=== PATIENT | male | born 1990 | race Caucasian/White ===

== ENCOUNTER 2016-10-18 10:33 | Inpatient (IN) | payer OTHER ==
[~2016-10-18] VITALS: Ht 188 cm; Wt 172.4 kg
--- NOTE | ~2016-10-18 | O ---
[facility] [place] [address] OPERATIVE REPORT Name: LIZZIE MAI Room #: 437-P [facility] IN M.R.#: [id number] Admission: 10/18/16 Attend Phys: Axel Richmond MD Discharge: Date of : 89 Report #: [id number] THIS REPORT FOR: //name// CC: Jareth Richmond MD PREOPERATIVE DIAGNOSES: Right ureteral calculi, right flank pain, right hydronephrosis. POSTOPERATIVE DIAGNOSES: Right ureteral calculi, right flank pain, right hydronephrosis. PROCEDURE: Cystoscopy, right ureteroscopy with holmium laser ablation of right ureteral calculi with placement of indwelling right ureteral stent. SURGEON: Frederick Romano MD ANESTHESIA: General. INDICATIONS: The patient is a very pleasant 26-year-old gentleman who is admitted for pain management for hydronephrosis and right distal ureteral calculi. He has been persistently symptomatic requiring IV medication. I reviewed his films and reviewed risks, benefits, complications. He has opted to proceed with endoscopic manipulation, risk of injury to the ureter, injury to kidney requiring immediate or delayed open surgery, risk of complications were discussed. He understands complications could occur, which may not have been foreseen or discussed. Issues related to stent placement, stent removal have been discussed. He has previously removed the stent on er. I explained he most likely would require stents. SURGICAL PROCEDURE: After obtaining informed consent, he was brought to the operating room, general anesthetic was administered. He was prepped and draped in lithotomy position by the operating personnel under anesthesia supervision. The preliminary fluoroscopic images were obtained. The stones were very faint in the right hemipelvis. The 22-[place] Olympus cystoscope was introduced under direct vision. The anterior urethra was normal. Prostatic urethra short and nonobstructive. Upon entering the bladder, the trigone and ureters were noted to be normal in configuration and location. Initially I attempted to place a straight Glidewire into the right ureter and into the right renal pelvis, but the stones were impacted. Ultimately, I used an angled Glidewire and I was able to negotiate the wire past the stones. I then dilated the very pinpoint ureteral orifice to 15-[place] Korean at 10 atmospheres. Using the 4 cm balloon, I used a 6.9-[place] semirigid ureteroscope to access the ureter, identified the stone fragments and I was able to break them into innumerable small fragments. I retrieved the largest of the fragments and sent it [place] [address] OPERATIVE REPORT Name: LIZZIE MAI Room #: 437-P [facility] IN M.R.#: [id number] Admission: 10/18/16 Attend Phys: Axel Richmond MD Discharge: Date of : 90 Report #: [id number] fragments fell into the bladder. Because of the hydronephrosis, I was able to easily advance the scope all the way up to the UPJ without difficulty. The ureter was pristine. At this point, the ureter was opened. There were no significant fragments whatsoever within the ureter. Large fragments had been retrieved after holmium laser ablation. I then removed the ureteroscope and backloaded the wire through the cystoscope and placed a 6-[place] x 28 cm contour stent. The proximal curl was overlying the right renal . The distal curl was in the bladder. The dangler was left attached and secured to the penis with benzoin and Steri-Strips. He arrived to the recovery room in stable condition. By: [id number] Frederick Romano MD /nt
[~2016-10-18 10:33] MED LIST: AZO CRANBERRY1 EACH PO; CLONAZEPAM; CLONAZEPAM 0.50.5 M1 PO; COLACE100 MG PO; DEPAKOTE125 MG; FLOMAX0.4 MG PO; IBUPROFEN 400400 M2 PO; LEXAPRO 10 MG T10 M1 PO; MIRALAX17 GM PO; NOHOMEMEDICATIONS; NORCO 5-325 TA1 EACH; NORCO 5-325 TA1 EACH PO; OXYCODONE HCL 55 MG PO; OXYCODONE HCL5 M1 PO; PERCOCET 10-321 EACH PO; PERCOCET PO; SENOKOT-S1 TA1 PO; SEROQUEL 25 MG25 M1 PO; TYLENOL325 MG PO
[2016-10-18 12:00] VITALS: BP 139/89
[2016-10-18 16:00] VITALS: BP 135/85
[2016-10-18 16:17] LABS: ABSOLUTE NEUTROPHILS 3.9 thou/uL (1.4-8.2); BASOPHILS 0.8 % (0.0-2.0); EOSINOPHILS 2.6 % (0.0-3.0); HEMOGLOBIN 15.1 gm/dL (14.0-18.0); LYMPHOCYTES 30.2 % (24.0-44.0); MCH 31.2 pg (26.0-34.0); MCHC 34.4 g/dL (28.0-37.0); MCV 90.7 fL (80.0-100.0); MONOCYTES 8.3 % (1.0-8.0); PLATELET COUNT 214 thou/uL (150-400); POLYS 58.1 % (36.0-66.0); RBC 4.85 mil/uL (4.50-6.00); RDW 12.9 % (10.5-14.5); WBC 6.7 thou/uL (4.0-11.0)
[2016-10-18 16:18] LABS: MANUAL DIFF NO
[2016-10-18 16:34] LABS: ALBUMIN 3.4 g/dL (3.4-5.0); CALCIUM 8.9 mg/dL (8.5-10.1); CREATININE 0.8 mg/dL (0.7-1.3); POTASSIUM 4.2 mmol/L (3.5-5.1); TOTAL BILIRUBIN 0.4 mg/dL (<0.1-1.0); TOTAL PROTEIN 6.8 g/dL (6.4-8.2)
[2016-10-18 18:23] LABS: URINE BILIRUBIN NEGATIVE (Negative); URINE BLOOD 3+ (Negative); URINE COLOR YELLOW; URINE GLUCOSE-RANDOM* NEGATIVE (Negative); URINE KETONES TRACE (Negative); URINE LEUKOCYTES-REFLEX NEGATIVE (Negative); URINE PROTEIN (DIPSTICK) TRACE (Negative); URINE SPECIFIC GRAVITY >= 1.030 (1.003-1.035)
[2016-10-18 18:28] LABS: SQUAMOUS >10 Many /LPF (0-3)
[2016-10-18 18:29] LABS: CASTS None Seen /LPF (None Seen); CRYSTALS None Seen /LPF (None Seen); URINE WBC-REFLEX 0-5 Rare /HPF (0-5)
[2016-10-18 18:32] LABS: CALCIUM OXALATE 4-10 Moderate /LPF (None Seen)
[2016-10-18 19:25] VITALS: BP 148/74
[2016-10-19 05:15] VITALS: BP 146/94
[2016-10-19 06:08] LABS: HEMATOCRIT 44.3 % (42.0-52.0); HEMOGLOBIN 15.3 gm/dL (14.0-18.0); MCHC 34.5 g/dL (28.0-37.0); RBC 4.92 mil/uL (4.50-6.00); WBC 7.9 thou/uL (4.0-11.0)
[2016-10-19 06:18] LABS: CALCIUM 9.1 mg/dL (8.5-10.1); CREATININE 0.9 mg/dL (0.7-1.3); POTASSIUM 4.3 mmol/L (3.5-5.1)
[2016-10-19 08:00] VITALS: BP 147/98
[2016-10-19 16:00] VITALS: BP 141/93
[2016-10-19 20:00] VITALS: BP 135/72
[2016-10-20 04:20] VITALS: BP 135/66
[2016-10-20 07:16] LABS: HEMATOCRIT 44.6 % (42.0-52.0); HEMOGLOBIN 15.2 gm/dL (14.0-18.0); MCH 30.8 pg (26.0-34.0); MCV 90.5 fL (80.0-100.0); RBC 4.93 mil/uL (4.50-6.00); RDW 12.9 % (10.5-14.5); WBC 7.1 thou/uL (4.0-11.0)
[2016-10-20 07:35] LABS: CALCIUM 9.2 mg/dL (8.5-10.1); CREATININE 0.7 mg/dL (0.7-1.3); POTASSIUM 4.1 mmol/L (3.5-5.1)
[2016-10-20 08:00] VITALS: BP 151/85
[2016-10-20 16:00] VITALS: BP 142/59
[2016-10-20 19:11] VITALS: BP 118/74
[2016-10-21 04:17] VITALS: BP 135/68
[2016-10-21 06:05] LABS: HEMATOCRIT 43.7 % (42.0-52.0); HEMOGLOBIN 15.2 gm/dL (14.0-18.0); MCH 31.1 pg (26.0-34.0); MCHC 34.7 g/dL (28.0-37.0); MCV 89.6 fL (80.0-100.0); RBC 4.88 mil/uL (4.50-6.00); WBC 6.3 thou/uL (4.0-11.0)
[2016-10-21 06:18] LABS: CALCIUM 9.1 mg/dL (8.5-10.1); CREATININE 0.9 mg/dL (0.7-1.3); POTASSIUM 4.2 mmol/L (3.5-5.1)
[2016-10-21 16:00] VITALS: BP 155/92
[2016-10-21 19:36] VITALS: BP 149/87
[2016-10-22 05:00] VITALS: BP 145/70
[2016-10-22 05:53] LABS: HEMATOCRIT 45.6 % (42.0-52.0); HEMOGLOBIN 15.8 gm/dL (14.0-18.0); MCHC 34.6 g/dL (28.0-37.0); MCV 89.4 fL (80.0-100.0); RBC 5.09 mil/uL (4.50-6.00); RDW 13.2 % (10.5-14.5); WBC 13.4 thou/uL (4.0-11.0)
[2016-10-22 06:06] LABS: CALCIUM 9.8 mg/dL (8.5-10.1); CREATININE 0.9 mg/dL (0.7-1.3); POTASSIUM 4.1 mmol/L (3.5-5.1)
[2016-10-22] MEDS ORDERED: ALLOPURINOL 30300 M2 PO (06:45)
[2016-10-22 07:30] VITALS: BP 154/87
[2016-10-22] MEDS ORDERED: PERCOCET 10-321 EACH PO (14:10)
[2016-10-22 14:26] VITALS: BP 154/87
== END 2016-10-22 15:43 | disposition home or self-care (01) | DRG 669 ==
LOC: 4S 10:33
PROVIDERS: Hospitalist; Internal Medicine
PROC: 0T768DZ Dilation of Right Ureter with Intraluminal Device, Via Natural or Artificial Opening Endoscopic (ICD-10-PCS; principal; 2016-10-21)
PROC: 0TC68ZZ Extirpation of Matter from Right Ureter, Via Natural or Artificial Opening Endoscopic (ICD-10-PCS; principal; 2016-10-21)
DX: N13.2 Hydronephrosis with renal and ureteral calculous obstruction (principal); Z68.42 Body mass index [BMI] 45.0-49.9, adult; N39.0 Urinary tract infection, site not specified; J45.909 Unspecified asthma, uncomplicated; G47.30 Sleep apnea, unspecified; M10.9 Gout, unspecified; Z87.442 Personal history of urinary calculi; F12.10 Cannabis abuse, uncomplicated; E66.01 Morbid (severe) obesity due to excess calories; K21.9 Gastro-esophageal reflux disease without esophagitis; K76.0 Fatty (change of) liver, not elsewhere classified; Z88.8 Allergy status to other drugs, medicaments and biological substances; Z84.1 Family history of disorders of kidney and ureter; Z90.49 Acquired absence of other specified parts of digestive tract; Z79.899 Other long term (current) drug therapy
CPT/HCPCS: 10102; 50010; 50101; 50164; 51179; 51620; 51767; 56815; 62110; 62900; 70005

== ENCOUNTER → 2016-11-10 | Outpatient (CLI) | payer BC, OTHER ==
[~2016-11-10] MED LIST changes: +ALLOPURINOL 30300 M2 PO
== END ==
LOC: RAD 09:08
DX: N20.0 Calculus of kidney (principal)

== ENCOUNTER → 2016-11-18 | Outpatient (CLI) | payer BC, OTHER ==
[~2016-11-18] MED LIST changes: +CYMBALTA60 MG PO; +FLEXERIL PO; +HYDROCODONE-AP1 EAC6 PO
== END ==
LOC: CAT 16:03
DX: N20.2 Calculus of kidney with calculus of ureter (principal); N13.30 Unspecified hydronephrosis

== ENCOUNTER 2016-11-20 01:11 | Emergency (ER) | payer OTHER ==
[~2016-11-20] VITALS: Ht 188 cm; Wt 172.4 kg
[~2016-11-20 01:11] MED LIST changes: -CYMBALTA60 MG PO; -FLEXERIL PO; -HYDROCODONE-AP1 EAC6 PO
[2016-11-20] MEDS ORDERED: CYMBALTA60 MG PO (01:27)
[2016-11-20] MEDS ORDERED: HYDROCODONE-AP1 EAC6 PO (01:27)
[2016-11-20] MEDS ORDERED: FLEXERIL PO (01:27)
[2016-11-20 01:29] LABS: ABSOLUTE NEUTROPHILS 6.7 thou/uL (1.4-8.2); BASOPHILS 1.1 % (0.0-2.0); EOSINOPHILS 1.9 % (0.0-3.0); HEMATOCRIT 51.1 % (42.0-52.0); HEMOGLOBIN 17.7 gm/dL (14.0-18.0); LYMPHOCYTES 35.4 % (24.0-44.0); MCH 30.8 pg (26.0-34.0); MCHC 34.6 g/dL (28.0-37.0); MCV 89.1 fL (80.0-100.0); PLATELET COUNT 255 thou/uL (150-400); POLYS 52.6 % (36.0-66.0); RBC 5.73 mil/uL (4.50-6.00); RDW 12.9 % (10.5-14.5); WBC 12.7 thou/uL (4.0-11.0)
[2016-11-20 01:31] LABS: URINE BILIRUBIN NEGATIVE (Negative); URINE BLOOD NEGATIVE (Negative); URINE COLOR YELLOW; URINE GLUCOSE-RANDOM* NEGATIVE (Negative); URINE KETONES NEGATIVE (Negative); URINE LEUKOCYTES-REFLEX NEGATIVE (Negative); URINE PROTEIN (DIPSTICK) NEGATIVE (Negative); URINE SPECIFIC GRAVITY >= 1.030 (1.003-1.035); URINE UROBILINOGEN 0.2 E.U./dl (0.2-1.0)
[2016-11-20 01:35] LABS: MANUAL DIFF NO
[2016-11-20 01:40] LABS: CALCIUM 9.8 mg/dL (8.5-10.1); POTASSIUM 3.8 mmol/L (3.5-5.1)
[2016-11-20 01:46] LABS: ALBUMIN 4.3 g/dL (3.4-5.0); TOTAL BILIRUBIN 0.7 mg/dL (<0.1-1.0); TOTAL PROTEIN 8.3 g/dL (6.4-8.2)
[2016-11-20] MEDS ORDERED: SENOKOT-S1 TA1 PO (04:02)
[2016-11-20] MEDS ORDERED: NORCO 7.5-3251 EACH PO (04:02)
[2016-11-20] MEDS ORDERED: FLOMAX0.4 MG PO (04:18)
== END 2016-11-20 04:24 | disposition home or self-care (01) ==
LOC: ER 01:11
PROVIDERS: Emergency Medicine
DX: N20.0 Calculus of kidney (principal); R30.0 Dysuria; R31.9 Hematuria, unspecified; Z90.49 Acquired absence of other specified parts of digestive tract; Z87.442 Personal history of urinary calculi; J45.909 Unspecified asthma, uncomplicated; Z96.89 Presence of other specified functional implants; Z88.1 Allergy status to other antibiotic agents; Z87.891 Personal history of nicotine dependence; F10.99 Alcohol use, unspecified with unspecified alcohol-induced disorder

== ENCOUNTER 2020-03-22 19:40 | Inpatient (IN) | payer OTHER ==
[~2020-03-22] VITALS: Ht 188 cm; Wt 82.4 kg
[~2020-03-22 19:40] MED LIST changes: +CYMBALTA60 MG PO; +FLEXERIL PO; +HYDROCODONE-AP1 EAC6 PO; +NORCO 7.5-3251 EACH PO
[2020-03-22 19:41] VITALS: BP 188/111
[2020-03-22] MEDS ORDERED: LEXAPRO20 MG PO (19:51)
[2020-03-22] MEDS ORDERED: DICYCLOMINE HCL20 MG PO (19:52)
[2020-03-22] MEDS ORDERED: COZAAR 25 MG TA25 M1 PO (19:52)
[2020-03-22] MEDS ORDERED: FAMOTIDINE 10 M10 MG PO (19:53)
[2020-03-22] MEDS ORDERED: NEXIUM 40 MG CA40 M1 PO (19:53)
[2020-03-22] MEDS ORDERED: CARAFATE 1 GM TA1 GM (19:54)
[2020-03-22] MEDS ORDERED: PREDNISONE 5 MG5 M1 PO (19:54)
[2020-03-22 21:41] LABS: HEMATOCRIT 49.2 % (42.0-52.0); HEMOGLOBIN 16.7 gm/dL (14.0-18.0); MCH 30.6 pg (26.0-34.0); MCHC 33.9 g/dL (28.0-37.0); MCV 90.4 fL (80.0-100.0); RBC 5.44 mil/uL (4.50-6.00); RDW 13.2 % (10.5-14.5); WBC 14.2 thou/uL (4.0-11.0)
[2020-03-22 21:50] LABS: CALCIUM 9.4 mg/dL (8.5-10.1); POTASSIUM 4.3 mmol/L (3.5-5.1)
[2020-03-22 21:56] LABS: ALBUMIN 3.8 g/dL (3.4-5.0); DIRECT BILIRUBIN 0.1 mg/dL (<0.1-0.2); TOTAL BILIRUBIN 0.5 mg/dL (0.2-1.0); TOTAL PROTEIN 7.9 g/dL (6.4-8.2)
[2020-03-23 02:11] VITALS: BP 135/81
[2020-03-23] MEDS ORDERED: PHENTERMINE H37.5 MG PO (04:04)
[2020-03-23] MEDS ORDERED: CLONAZEPAM 0.50.5 M1 PO (04:05)
[2020-03-23] MEDS ORDERED: LORCET 5-325 M1 EACH PO (04:06)
--- NOTE | 2020-03-23 04:22 | NUR ---
PATIENT ALERT AND ORIENTED X4. CAME FROM ED VIA CART AND RN, HOWEVER, WALKED FROM CART TO BED. MEDICATED FOR ABDOMINAL PAIN WITH MORPHINE IVP 4MG. SMALL LOOSE STOOL X1. PLEASANT AND COOPERATIVE. FLUSH IN HIS FACE AND ON HIS BACK WITH WARMTH, NO TEMP NOTED. HAT IN BATHROOM FOR C-DIFF SAMPLE. HAS NOT VOIDED AT TIME OF NOTE. RIGHT AC PATENT, REPORTED DIFFICULT STICK FROM ED. PREFERS TO BE CALLED "DJ". PATIENT WEARING LOOSE KNEE LENGTH SHORTS [facility] GOWN PER PREFERENCE. NO N/V AT THIS TIME. RESTING QUIETLY. WILL MONITOR.
[2020-03-23 08:00] VITALS: BP 130/68
[2020-03-23 08:24] LABS: HEMATOCRIT 49.5 % (42.0-52.0); HEMOGLOBIN 16.5 gm/dL (14.0-18.0); MCH 30.2 pg (26.0-34.0); MCHC 33.2 g/dL (28.0-37.0); MCV 90.9 fL (80.0-100.0); RBC 5.45 mil/uL (4.50-6.00); RDW 13.1 % (10.5-14.5); WBC 12.4 thou/uL (4.0-11.0)
--- NOTE | 2020-03-23 11:33 | NUR ---
Assumed care of pt at 0700. Pt a&ox4. Up ad cody. C/o abd pain. Prn pain med administered. Awaiting stool culture. Call light within reach. Will continue to monitor.
[2020-03-23 16:24] VITALS: BP 116/70
[2020-03-23 20:21] VITALS: BP 116/68
[2020-03-24 04:50] VITALS: BP 139/80
--- NOTE | 2020-03-24 07:39 | NUR ---
Assumed pt care at 1900. A/OX4,VSS. Up ad cody w/o any problems. C/o pain to LUQ but radiating to all quads,medicated per EMAR with Morphine with relief reported. 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 C/o mild nausea at night but declined antiemetics. Covid test obtained for EGD/Colonoscopy 03/25. PIV SL on RAC.Resting quietly w/o any distress noted. Cdiff sample pending collection;remains on special contact isolation.
[2020-03-24 09:39] VITALS: BP 129/80
--- NOTE | 2020-03-24 10:57 | NUR ---
Received awake on bed. Due medications given as prescribed, able to swallow meds w/o difficulty. On room air. Vital signs stable. On MS, not on telemetry; no complains of chest pain, crushing sensation and heaviness. On clear liquid diet- pt arguing that a physician said the he is allowed to have regular diet for breakfast and lunch- called Gastro oncall- as per Dr Beard- pt should be strictly on Clear liquids the whole day- pt informed and became upset, pt seen and examined by Dr Beard this AM and explained to him why he has to stay on clear liquids- pt settled down after being seen by physician. Continent of bowel and bladder, able to go to the toilet. Assisted in ADLs. With SL at R AC- on IV antibiotics. Maintained on isolation- r/o Cdiff, still a/w stool sample. Covid swab done by Night RN nurse- a/w results. Complained of pain, due PRN pain meds given as prescribed- Dr Del Angel informed re: additional PO pain meds since pt is only on IV pain meds. To continue monitoring patient.
[2020-03-24 16:50] VITALS: BP 118/72
[2020-03-24 20:05] VITALS: BP 115/79
--- NOTE | 2020-03-25 03:00 | NUR ---
ASSUMED CARE OF PT AT 1900HRS. PT AOX4 AND LETS NEEDS BE KNOWN. PT IS INDEPENDENT IN THE ROOM. PT REPORTED SOME PAIN AND WAS TREATED WITH PRN PAIN MEDS. PT COMPLETED BOWEL PREP AND WAS PLACED NPO AT CA. PT WAS ABLE TO GET COMFORTABLE AND SLEEP PART OF THE SHIFT. VSS AND NO S/S OF ACUTE DISTRESS. WILL CONTINUE TO MONITOR.
[2020-03-25 08:40] VITALS: BP 132/98
--- NOTE | 2020-03-25 13:36 | NUR ---
PT ADMITTED RELATED TO ULCERATIVE COLITIS. CM REVIEWED CHART AND SPOKE WITH CARE TEAM. CM CALLED AND SPOKE WITH PT OVER THE PHONE THIS DAY. PT APPEARED TO BE A&O X4. CM ROLE INTRODUCED. PT INDICATED HE LIVES IN A DUPLEX WITH HIS GIRLFRIEND AND FAMILY. 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 PT INDICATED HIS PCP IS DR. RODRI SANDOVAL AND HIS LEAN SPECIALIST. HE INDICATED THAT HE PLANS TO RETURN HOME ONCE MEDICALLY STABLE. PT TO HAVE EGD AND COLONOSCOPY THIS DAY. CM TO FOLLOW INDICATED WITH ANY DC NEEDS.
--- NOTE | 2020-03-25 13:48 | NUR ---
Received awake on bed. Due medications given as prescribed. On nothing per orem, patient aware and informed. On MS, not on telemetry; no complains of chest pain, crushing sensation and heaviness. On room air. Continent of bowel and bladder, able to go to the toilet independently; tolerated bowel prep yesterday- for colonoscopy today- a/w time; consent to be signed. With SL at R AC- intact and flushing well; infiltrated, for re-insertion. Maintained on isolation- possible Cdiff, specimen sent, a/w results. Complained of pain, due PRN pain meds given as prescribed. Pt still complained of pain 2 hrs after giving meds- Dr Del Angel informed, onetime order for pain meds given as prescribed. Report given to BRADLY SELBY of GI, she'll be putting in new IV, informed her re: positive Cdiff results- precautions observed. Brought down pt via wheelchair, transferred safely.
[2020-03-25 14:20] VITALS: BP 141/59
[2020-03-25 14:50] VITALS: BP 138/65
[2020-03-25 15:30] VITALS: BP 137/65
[2020-03-25 19:13] VITALS: BP 122/81
--- NOTE | 2020-03-26 04:08 | NUR ---
Assumed pt care at 1900. A/OX4,VSS, up ad cody w/o any problems voiced. C/o LLQ pain medicated per EMAR with relief reported. Denies nausea on assessment. Remains on isolation for cdiff, PO Vancomycin. Up talking on the phone at this time,will continue to monitor pt.
[2020-03-26 07:28] VITALS: BP 109/72
[2020-03-26] MEDS ORDERED: VANCOCIN 125 M125 M1 PO (08:54)
[2020-03-26] MEDS ORDERED: ACIDOPHILUS1 EAC4 PO (08:55)
[2020-03-26] MEDS ORDERED: HYDROCODON-ACE1 EAC7 PO (08:59)
[2020-03-26 09:30] LABS: HEMATOCRIT 44.8 % (42.0-52.0); HEMOGLOBIN 15.5 gm/dL (14.0-18.0); MCHC 34.5 g/dL (28.0-37.0); MCV 89.7 fL (80.0-100.0); RBC 4.99 mil/uL (4.50-6.00); RDW 12.7 % (10.5-14.5); WBC 9.8 thou/uL (4.0-11.0)
[2020-03-26 09:47] VITALS: BP 109/72
[2020-03-26 09:48] LABS: CALCIUM 9.2 mg/dL (8.5-10.1); CREATININE 1.2 mg/dL (0.7-1.3); MAGNESIUM 1.8 mg/dL (1.8-2.4); POTASSIUM 3.7 mmol/L (3.5-5.1)
--- NOTE | 2020-03-26 11:26 | NUR ---
ASSUMED PT CARE THIS AM. VITAL SIGNS STABLE, A&OX4. PT REPORTED PAIN THAT WAS RESPONSIVE TO MEDICATION GIVEN. DIET TOLERATED WELL. AMBULATORY TO RESTROOM. IV PATENT. PT DISCHARGED TO HOME. NO FURTHER COMPLAINTS FROM PT.
--- NOTE | 2020-03-26 16:08 | P ---
[facility] [place] [address] PROCEDURE REPORT Name: LIZZIE MAI Room #: 459-P [facility] IN M.R.#: [id number] Admission: 03/23/20 Attend Phys: Yaya Del Angel MD Discharge: 03/26/20 Date of : 89 Report #: [id number] THIS REPORT FOR: cc: Jareth Britt MD, Christopher MD McElhinney, Christian C. MD ~ CC: Jareth Del Angel MD DATE OF SERVICE: 03/25/2020 PROCEDURE PERFORMED: Colonoscopy with biopsies. HISTORY OF PRESENT ILLNESS: The patient is a 29-year-old male with a history of abdominal pain, weight loss, diarrhea, or blood in the stools. Apparently had an upper endoscopy within the last few weeks, which showed ulcerations, was placed on PPI therapy. He continues to have abdominal pain. He was recently placed on prednisone 40 mg a day empirically for possible ulcerative colitis, although he has never had a colonoscopy. Apparently, a CT scan of his abdomen showed steatosis, but no evidence of colitis. Since admission, stool studies have been sent. WBC was negative. C. diff was positive from 03/24, Salmonella and Shigella were all negative. Campylobacter negative. The patient is currently on vancomycin 125 p.o. q.i.d. He was on Flagyl, which has now been discontinued. He is currently not on steroids. Plan is for colonoscopy. DESCRIPTION OF PROCEDURE: The risks and benefits of the procedure were explained to the patient, those risks including but not limited to bleeding, perforation and the risk of sedation. He understood these risks and gave informed consent. Sedation was given using propofol per anesthesia. Next, a digital rectal exam was initially performed, which was normal. Next, using a standard Olympus colonoscope, the scope was placed in the patient's anus and advanced under direct vision to the cecum. The overall prep was good. The cecum and ileocecal valve were normal in appearance. Terminal ileum was intubated and normal in appearance. Ascending, transverse, descending and sigmoid colon were all normal. Random biopsies of the sigmoid colon were obtained to rule out the possibility of microscopic colitis. The proximal and mid rectum was normal. There was a mild colitis, possible colitis in the distal rectum, only approximately 2 cm. Biopsies were obtained. No evidence of bleeding. On retroflexion, no abnormalities were noted. Close examination of the anal canal showed no evidence of hemorrhoids or anal fissure. The scope was then withdrawn and the procedure terminated. The patient tolerated the procedure well. IMPRESSION: 1. Distal mild rectal colitis. Biopsies obtained to rule out the possibility [address] [address] PROCEDURE REPORT Name: LIZZIE MAI SANTA Room #: 459-P [facility] IN M.R.#: [id number] Admission: 03/23/20 Attend Phys: Yaya Del Angel MD Discharge: 03/26/20 Date of : 89 Report #: [id number] of ulcerative colitis. 2. Otherwise, normal colonoscopy. RECOMMENDATIONS: 1. Await biopsy results. 2. Continue vancomycin as the patient is C. diff positive. 3. The patient's history of abdominal pain and diarrhea with blood, may be secondary to Clostridium difficile. He was on antibiotics several months ago for renal problems. There was a very mild colitis noted in the distal rectum; therefore, ulcerative colitis is a possibility. Apparently, he was on steroids recently as well. We will need to await biopsy results for further evaluation. In the meantime, would just vancomycin and not proceed with any further steroids at this time. Thank you for allowing me to participate in his care. <ELECTRONICALLY SIGNED> By: Carlos Ward MD 03/26/20 [id number] Carlos Ward MD /nt
== END 2020-03-26 10:42 | disposition home or self-care (01) | DRG 372 ==
LOC: ER 19:40 → EROBS 03-23 01:50 → 4W 03-23 01:50 → 4S 03-23 03:05 → 4W 03-23 18:47
PROVIDERS: Emergency Medicine; Nurse Practitioner Family; ADMIT Internal Medicine; ATTEND Internal Medicine
PROC: 0DBP8ZX Excision of Rectum, Via Natural or Artificial Opening Endoscopic, Diagnostic (ICD-10-PCS; principal; 2020-03-25)
PROC: 0DBN8ZX Excision of Sigmoid Colon, Via Natural or Artificial Opening Endoscopic, Diagnostic (ICD-10-PCS; principal; 2020-03-25)
DX: A04.72 Enterocolitis due to Clostridium difficile, not specified as recurrent (principal); K51.90 Ulcerative colitis, unspecified, without complications; Z20.828 Contact with and (suspected) exposure to other viral communicable diseases; J45.909 Unspecified asthma, uncomplicated; M10.9 Gout, unspecified; F41.9 Anxiety disorder, unspecified; F32.9 Major depressive disorder, single episode, unspecified; F43.10 Post-traumatic stress disorder, unspecified; R63.4 Abnormal weight loss; Z87.442 Personal history of urinary calculi; Z84.1 Family history of disorders of kidney and ureter; Z87.891 Personal history of nicotine dependence; Z88.8 Allergy status to other drugs, medicaments and biological substances; Z68.23 Body mass index [BMI] 23.0-23.9, adult; Z79.899 Other long term (current) drug therapy
CPT/HCPCS: 10040; 70005